=== PATIENT | female | born 1995 | race Caucasian/White ===

== ENCOUNTER → 2022-07-20 | Outpatient (CLI) | payer MEDICAID ==
--- NOTE | 2022-07-20 16:13 | Diagnostic Imaging Report ---
PROCEDURE: US Non-ob pelvis comp/trans. TECHNIQUE: Multiple realtime grayscale images were obtained of the pelvis in various projections endovaginally. Transabdominal imaging was also performed. INDICATION: Abnormal uterine bleeding. COMPARISON: None FINDINGS: Uterus is retroverted and measures 7.5 x 5.3 x 5.9 cm. No suspicious myometrial masses are seen. Endometrial stripe is within normal limits at 11 mm in AP thickness. Visualized portions of the cervix are unremarkable. No adnexal masses or free fluid are seen. Right ovary measures 3.7 x 2.6 x 2.8 cm and the left measures 2.2 x 1.5 x 1.8 cm. Multiple small peripherally oriented ovarian follicles are identified bilaterally. There is also dominant benign cyst on the left that measures 2.2 x 1.5 x 1.8 cm. IMPRESSION: 1. Multiple bilateral ovarian follicles and cysts. In the correct clinical setting, findings can be seen as a sequela of polycystic ovarian syndrome. Clinical correlation is advised. 2. Otherwise, unremarkable pelvic sonogram. Dictated by: Dictated on workstation # [id number]
== END ==
LOC: RAD 14:04
PROVIDERS: ATTEND Nurse Practitioner Women's Health
DX: N83.202 Unspecified ovarian cyst, left side (principal); N93.9 Abnormal uterine and vaginal bleeding, unspecified
CPT/HCPCS: 76830; 76856